=== PATIENT | female | born 1945 | race Native Hawaiian/Other Pacific Islander ===

== ENCOUNTER 2016-12-04 14:29 | Outpatient (CLI) | payer OTHER ==
[2016-12-04 15:00] LABS: POTASSIUM 4.4 mmol/L (3.6-5.2)
== END 2016-12-04 15:29 | disposition home or self-care (01) ==
LOC: LABW 14:29
PROVIDERS: Internal Medicine Cardiovascular Disease
DX: N39.0 Urinary tract infection, site not specified (principal); I50.9 Heart failure, unspecified; Z79.899 Other long term (current) drug therapy; Z51.81 Encounter for therapeutic drug level monitoring
CPT/HCPCS: 36415; 80048; 81000; 83880

== ENCOUNTER 2017-02-05 14:14 | Outpatient (CLI) | payer OTHER ==
[2017-02-05 14:34] LABS: PLATELET COUNT 358 K/uL (152-353)
[2017-02-05 15:42] LABS: POTASSIUM 4.1 mmol/L (3.6-5.2)
== END 2017-02-05 19:20 | disposition home or self-care (01) ==
LOC: RAD 14:14 → LABW 14:14
PROVIDERS: Internal Medicine Cardiovascular Disease
DX: I10 Essential (primary) hypertension (principal); R06.02 Shortness of breath
CPT/HCPCS: 36415; 80048; 83880; 85027

== ENCOUNTER 2017-02-06 11:11 | Outpatient (CLI) | payer OTHER | END 2017-02-06 19:08 | disposition home or self-care (01) | LOC: RAD 11:11 | DX: R06.02 Shortness of breath (principal) ==

== ENCOUNTER 2017-09-03 12:24 | Outpatient (CLI) | payer OTHER ==
[2017-09-03 12:46] LABS: POTASSIUM 3.5 mmol/L (3.6-5.2)
== END 2017-09-03 13:25 | disposition home or self-care (01) ==
LOC: LABW 12:24
PROVIDERS: Internal Medicine Cardiovascular Disease
DX: I50.9 Heart failure, unspecified (principal); Z79.899 Other long term (current) drug therapy; Z51.81 Encounter for therapeutic drug level monitoring
CPT/HCPCS: 36415; 80048; 83880

== ENCOUNTER 2017-09-16 07:47 | Outpatient (CLI) | payer OTHER | END 2017-09-16 08:50 | disposition home or self-care (01) | LOC: RAD 07:47 | DX: I48.1 Persistent atrial fibrillation (principal); Z79.899 Other long term (current) drug therapy; Z51.81 Encounter for therapeutic drug level monitoring ==